=== PATIENT | female | born 1975 | race Caucasian/White ===

== ENCOUNTER 2018-03-14 00:57 | Emergency (ER) | END 2018-03-14 06:06 | disposition home or self-care (01) ==

== ENCOUNTER 2018-11-17 21:19 | Emergency (ER) | payer MEDICAID ==
[~2018-11-17] VITALS: Ht 149.9 cm; Wt 76.2 kg
[~2018-11-17 21:19] MED LIST: CIPR500T4 PO; IBUP-1542 PO; TRAM50TA2 PO
[2018-11-17 21:23] VITALS: Ht 149.9 cm; Wt 76.2 kg
[2018-11-17] MEDS ORDERED: KETOROLAC 30 MG INJ IV STA (21:47)
[2018-11-17] MEDS ORDERED: ONDANSETRON 4 MG INJ IV STA (21:47)
[2018-11-17] MEDS ORDERED: SOD CHLORIDE 0.9% 1,000 ML IV STA ×2 (23:19→23:56)
[2018-11-17] MEDS ORDERED: CEFTRIAXONE 1 GM/50 ML (PMX) 50 ML IVPB ONE (23:30)
[2018-11-18] MEDS ORDERED: ACETAMINOPHEN 325 MG TAB PO ONE
[2018-11-18 00:32] VITALS: BP 99/69; PULSE 82; RESP 20
== END 2018-11-18 00:34 | disposition home or self-care (01) ==
LOC: E/R 21:19
DX: N12 Tubulo-interstitial nephritis, not specified as acute or chronic (principal); R40.2142 Coma scale, eyes open, spontaneous, at arrival to emergency department; R40.2252 Coma scale, best verbal response, oriented, at arrival to emergency department; R40.2362 Coma scale, best motor response, obeys commands, at arrival to emergency department
CPT/HCPCS: 36415; 74176; 80053; 81001; 81025; 83690; 85025; 96361; 96365; 96375; J0696; J1885; J2405; J7030; Z7502; Z7610